=== PATIENT | male | born 1955 | race Native Hawaiian/Other Pacific Islander ===

== ENCOUNTER 2019-03-07 13:57 | Emergency (ER) | payer BC ==
[~2019-03-07] VITALS: Ht 167.6 cm; Wt 78.5 kg
[2019-03-07 14:41] LABS: PLATELET COUNT 260 K/uL (142-355)
[2019-03-07 14:49] LABS: POTASSIUM 4.2 mmol/L (3.6-5.2)
[2019-03-07 14:59] VITALS: TEMP 98.2
[2019-03-07 15:09] LABS: PARTIAL THROMBOPLASTIN TIME 23.9 SECONDS (24.5-33.6)
[2019-03-07 15:48] VITALS: BP 143/53
== END 2019-03-07 15:48 | disposition home or self-care (01) ==
LOC: ED 13:57
PROVIDERS: Hospitalist
DX: R22.43 Localized swelling, mass and lump, lower limb, bilateral (principal); T81.89XA Other complications of procedures, not elsewhere classified, initial encounter; Y83.9 Surgical procedure, unspecified as the cause of abnormal reaction of the patient, or of later complication, without mention of misadventure at the time of the procedure
CPT/HCPCS: 36415; 80053; 83880; 85027; 85379; 85610; 85730; 93005; 96374; 96375; 99284; J2270; J2405